=== PATIENT | male | born 1965 | race African-American/Black ===

== ENCOUNTER 2020-07-14 20:03 | Emergency (ER) | payer BC ==
[2020-07-14] MEDS ORDERED: Ketorolac Tromethamine 30 MG/ML VIAL ONE (20:46)
== END 2020-07-14 21:10 | disposition home or self-care (01) ==
LOC: ERS 20:03
DX: K04.7 Periapical abscess without sinus (principal); R59.0 Localized enlarged lymph nodes; K02.9 Dental caries, unspecified; E11.9 Type 2 diabetes mellitus without complications; F17.210 Nicotine dependence, cigarettes, uncomplicated
CPT/HCPCS: 96372; 99282; J1885